=== PATIENT | female | born 1985 | race Caucasian/White ===

== ENCOUNTER → 2017-11-08 | Outpatient (CLI) | payer BC ==
[~2017-11-08] MED LIST: DOCU-416 PO; LACT1CAP6 PO; LEVO500T83 PO; MELA10TA7 PO; METR-160 PO; ONDA4TAB PO; ONDA4TAB97 PO; OXYC-854 PO; POTA20TA85 PO; PREN-127 PO; SUMA100T33 PO
== END ==
LOC: LAB 16:21
PROVIDERS: ATTEND Student in an Organized Health Care Education/Training Program
DX: Z34.91 Encounter for supervision of normal pregnancy, unspecified, first trimester (principal)
CPT/HCPCS: 87491; 87591

== ENCOUNTER → 2018-03-29 | Outpatient (CLI) | payer BC ==
[~2018-03-29] MED LIST changes: +AZIT-17 PO; +DIPH-911 PO; +FLU60VIA41 IM; -METR-160 PO; +METR500T15 PO; +NITR-105 PO; +PYRI25TA18 PO
== END ==
LOC: LAB 09:22
PROVIDERS: ATTEND Student in an Organized Health Care Education/Training Program
DX: M54.9 Dorsalgia, unspecified (principal); R82.79 Other abnormal findings on microbiological examination of urine
CPT/HCPCS: 87088

== ENCOUNTER → 2018-04-03 | Outpatient (CLI) | payer BC ==
[~2018-04-03] MED LIST changes: +DIPH0.5D12 IM
[2018-04-03 16:54] LABS: PLATELET COUNT, AUTOMATED 307 K/uL (150-450)
== END ==
LOC: LAB 08:16
PROVIDERS: ATTEND Advanced Practice Midwife
DX: Z34.92 Encounter for supervision of normal pregnancy, unspecified, second trimester (principal)
CPT/HCPCS: 82950; 85025

== ENCOUNTER → 2018-05-29 | Outpatient (CLI) | payer BC ==
[~2018-05-29] MED LIST changes: +BENZ100C4 PO; -DIPH0.5D12 IM; +DIPH0.5S2 IM; +POLY10DR22 OP
== END ==
LOC: LAB 15:41
PROVIDERS: ATTEND Advanced Practice Midwife
DX: Z36.85 Encounter for antenatal screening for Streptococcus B (principal)
CPT/HCPCS: 87081

== ENCOUNTER → 2018-06-02 | Outpatient (CLI) | payer BC ==
--- NOTE | 2018-06-02 17:15 | RADIOLOGY IMAGING REPORT ---
FACILITY: [facility] PATIENT NAME: Rubina Mason : 1985 MR: [id number] V: [id number] EXAM DATE: ORDERING PHYSICIAN: TREVA CHANCE TECHNOLOGIST: Location: [facility] - [place] Patient: Rubina Mason : 1985 Visit/Account:[id number] Date of Sevice: 06/02/2018 Limited OB ultrasound Indication: Size and dates Comparison: None available FINDINGS: Intrauterine gestations: one presentation: Vertex heart rate: 132 bpm Amniotic fluid index: 16.1 cm Largest amniotic fluid pocket 5.0 cm Placenta: Posterior without previa Uterus: gravid, otherwise normal Maternal adnexa: Unremarkable Cervix: long and closed Gestational Parameters: BPD: 8.7 cm 35 weeks 1 day, 13th percentile HC: 32.6 cm 37 weeks zero days, 22nd percentile AC: 32.6 cm 36 weeks 4 days, 46 percentile FL: 7.3 cm 37 weeks 1 day, 49th percentile Average ultrasound age (AUA): 36 weeks 4 days BRYN: 06/26/2018 Estimated weight (EFW): 2969 g EFW: 41st percentile IMPRESSION: 1. Single live intrauterine gestation with dates and measurements as above. Report Dictated By: Mario Streeter at 06/02/2018 5:08 PM Report E-Signed By: Mario Streeter at 06/02/2018 5:11 PM WSN:[id number]
== END ==
LOC: US 02:15
PROVIDERS: ATTEND Advanced Practice Midwife
DX: O26.843 Uterine size-date discrepancy, third trimester (principal)
CPT/HCPCS: 76815

== ENCOUNTER 2018-06-11 22:34 | Outpatient (CLI) | payer BC ==
[~2018-06-11] VITALS: Ht 165.1 cm; Wt 66.2 kg
[2018-06-11 23:00] VITALS: BP 114/73; BMI 24.3
[2018-06-11] MEDS ORDERED: LR(*) 1000 ML BAG 1,000 ML IV PRN (23:25)
[2018-06-12 07:00] VITALS: Ht 165.1 cm; Wt 66.2 kg
[2018-06-16] MEDS ORDERED: SUMA100T33 PO (15:30)
[2018-06-23] MEDS ORDERED: DESO15OI9 TP (12:46)
== END 2018-06-12 00:31 | disposition home or self-care (01) ==
LOC: L&D 22:34 → OB 22:34 → UNDOADMOB 22:34 → OB 22:34 → UNDODISOB 06-12 00:31 → L&D 06-12 00:31 → EDSTATUS 06-19 18:22
PROVIDERS: ATTEND Obstetrics & Gynecology
DX: O47.1 False labor at or after 37 completed weeks of gestation (principal); Z3A.38 38 weeks gestation of pregnancy
CPT/HCPCS: 59025; 99213; G0378; G0379

== ENCOUNTER 2018-06-12 05:00 | Inpatient (IN) | payer BC ==
[~2018-06-12] VITALS: Ht 162.6 cm; Wt 66.2 kg
[2018-06-12] MEDS ORDERED: LR(*) 1000 ML BAG 1,000 ML IV PRN (05:04)
[2018-06-12] MEDS ORDERED: OXYTOCIN 30 UNIT/D5LR 500 ML 500 ML ONE (05:45)
[2018-06-12 05:56] LABS: PLATELET COUNT, AUTOMATED 301 K/uL (150-450)
[2018-06-12] MEDS ORDERED: OXYTOCIN 30 UNIT/D5LR 500 ML 500 ML IV PRN (06:37)
[2018-06-12] MEDS ORDERED: FAMOTIDINE(*) 20MG/50ML PREMIX 50 ML IVPB PRN (06:37)
[2018-06-12] MEDS ORDERED: ceFAZolin(*) 2GM/D5W 50ML 50 ML IVPB PRN (06:37)
[2018-06-12] MEDS ORDERED: fentaNYL CITR 100 MCG/2 ML AMP IVP PRN (06:40)
[2018-06-12] MEDS ORDERED: METOCLOPRAMIDE 10 MG/2 ML SDV IVP PRN (06:40)
[2018-06-12 07:00] VITALS: BP 113/65; Ht 162.6 cm; Wt 66.2 kg
--- NOTE | 2018-06-12 07:31 | History & Physical ---
History of Present Illness : 1 Para or TPAL: 0 Chief Complaint IUP at term, contractions History of Present Illness 33 year old presents for ctx. She was here earlier in the evening and sent home after no cervical change in one hour. Ctx are stronger now. Shortly after arrival nurses reported SROM, clear fluid. PNC has been uncomplicated. GBS negative History Group B Strep Screen: Negative Obstetrical History: Past, Family & Social History Past Medical History Neurologic: Reports hx of: migraine Gastrointestinal: Reports hx of: irritable bowel syndrome 2 Genitourinary: Reports hx of: urinary tract infection Psychiatric: Reports hx of: anxiety (seeing counselor) depression eating disorder (Bulimia) Past Surgical History HEENT: Reports hx of: dental surgery (wisdom teeth) Gastrointestinal: Reports hx of: cholecystectomy (2017) other GI surgery (Partial Endoscopy) Past History History : 1 AB Spontaneous: Term: Mult Births: : Ectopic: AB Induced: Living Children: Gynecologic History Dysmenorrhea?: Yes Intermenstral Bleeding: No Last Pap Smear?: 2016 Last Pap Normal?: Yes Any Abnormal Paps? When?: No Any Procedures for Abnormal Pa: No Sexualy Active?: Yes Lifetime Partners: Men History of STI: No Contraception Method?: History of Abuse: No Infection/Genetics Infection history: H/O: chicken pox; No H/O: exposure to cats, rash/viral illness since Genetic screen and counseling: Baby's father: hemophilia/other blood di (iron build up in father), other chromosomal/inherit (Rhematoid arthritis); Negative: 35 years or older at due, patrice dx(Ashkenazi Taoist), congenital heart defect, cystic fibrosis, down syndrome, gladys chorea, maternal metabolic disord, mental retardation/autism, muscular dystrophy, neural tube defect, recurrent loss, sickle cell disease/trait, still , verenice-sachs (Ashkenazi Taoist), thalassemia/MCV < 80 Family History Patient History: FH: Parkinson's disease GRANDMOTHER FH: hyperlipidemia FATHER, Age:58 FH: hypertension PATERNAL GRANDMOTHER Tobacco Use Smoking Status: Never Smoker Smokeless Tobacco Used: Never Alcohol Use Alcohol Use: Occasional (3/week; before ) Substance Use Social Drug Use: Never Social History Social history: Marital Status: Living Situation: house Household Members: spouse / partner Education level: bachelor's degree Employment: employed real time trader Occupation: teacher at [employer] Sexual activity: monogomous Current contraception / STI pr: none Allergies: Coded Allergies: amoxicillin (Verified Allergy, Unknown, 05/17/16) clavulanic acid (Verified Allergy, Unknown, 05/17/16) Family History: FH: Parkinson's disease GRANDMOTHER FH: hyperlipidemia FATHER, Age:58 FH: hypertension PATERNAL GRANDMOTHER Med Rec Home Meds Reported Medications Vits W-Ca,Fe,Fa(<1MG) ( VITAMINS) 1 Each Tablet, 1 EACH PO DAILY, TAB 10/24/17 Discontinued Reported Medications Pyridoxine Hcl (VITAMIN B-6) Unknown Strength Tablet, PO 12/06/17 Diphenhydramine Hcl (UNISOM) Unknown Strength Capsule, PO, CAPSULE 12/06/17 Discontinued Scripts Polymyxin B Sulf/Trim 10,000 Unt-1 Mg/Ml Op (POLYMYXIN B-TMP EYE DROPS) 10 Ml Drops, 10 ML OP 5XD for pink eye for 7 Days, #1 BOT 0 Refills Right eye Prov:TREVA CHANCE [facility] 04/17/18 Benzonatate 100 Mg Cap (TESSALON PERLE 100 MG CAP) 100 Mg Capsule, 100 MG PO TID for cough, #15 CAP 0 Refills Prov:TREVA CHANCE [facility] 04/17/18 Nitrofurantoin Monohyd/M-Cryst (MACROBID 100 MG CAPSULE) 100 Mg Capsule, 100 MG PO BID for 7 Days, #14 CAPSULE 0 Refills Prov:NALDO TRAORE DO 03/29/18 Review of Systems Constitutional: No Fever Cardiovascular: No Chest Pain Respiratory: No Shortness of Breath Gastrointestinal: No Nausea, No Vomiting Psychiatric: No Depression, No Anxiety Exam General Exam Vital Signs Vital Signs Date Time Temp Pulse Resp B/P (MAP) Pulse Ox O2 Delivery O2 Flow Rate FiO2 06/12/18 07:00 98.1 88 22 113/65 (81) 98 Room Air General Apperance: Alert/Awake/No Acute Distress Respiratory: No Respiratory Distress Abdomen: Gravid - Non-Tender Extremities: No Cyanosis,Clubbing or Edema Integumentary: Skin Intact without Lesions or Rash Psychological: Alert & Oriented X3 Vaginal Discharge/Fluid?: Clear Fluid Cervical Dialation: 5 Cervical Effacement (%): 100 Cervical Consistency: Soft Cervical Position: Anterior Station: 0 Presentation: Vertex Uterine Contraction Strength: Strong UC Resting Tone: Soft Fetus Feeling Movement?: Yes Heart Tones: 120 Heart Tone Variabilty: Moderate FHT Accelerations: 15X15 FHT Decelerations: None FHT Category: I Medical Decision Making Data Points Result Diagram: 06/12/18 0542 Assessment and Plan REPAIR WELDER Assessment: Stable REPAIR WELDER Plan: Routine Labor Care Problems: (1) Active labor at term Assessment & Plan: Expectant management for , Kierra de la rosa CNSteven, per pt request. SANTHOSH LEE DO Jun 12, 2018 07:31
[2018-06-12] MEDS: IBUPROFEN 800 MG TAB PO SCH ×2 (11:12→19:17)
--- NOTE | 2018-06-12 11:29 | OB Delivery Note ---
Delivery Note Vaginal Delivery Type: Spont. Vaginal Delivery Delivery Date: Jun 12, 2018 Delivery Time: 09:50 Delivery Anesthesia: Other Sex: Male Infant Weight (gms): 3044 Apgars: 1 Minute, 5 Minute Repair Needed: Laceration, Vaginal, Perineal, 2nd Degree Delivery Complications: Laceration Notes: CP is a 33 year old @ 38 4/7 by LMP and first trimester US with an BRYN of 06/22/18 with OOC on 06/11/18 at 2100. She was triaged @ 2243 but was sent home as she was in early labor and 2/-2. Pt came back and was admitted to the family care unit at 0530 in active labor. Cervical exam on admission was 5/100/0. She had SROM on 06/12/18 at 0539 for clear moderate fluid. Pt was GBS neg. FHR was CAT I primarily throughout first stage. Pt utilized controlled breathing primarily for pain management. Pt was completely dilated on 06/12/18 at 0738 and pt began pushing spontaneously at that time.She pushed for a little over 2 hours with excellent maternal effort. At 0950 pt had a NSVB of live male infant APGARS 8/9, weighing 6bs 11oz, 3044g. The head delivered spontaneously in the OA position and restituted CARRIE with no nuchal cord. The anterior shoulder was delivered a traumatically and the posterior shoulder followed. Body delivered easily. Face was wiped and then placed on the maternal abdomen. The infant was dried and stimulated and noted to have a spontaneous cry and spontaneous movement of all 4 extremities. Cord was clamped X 2 by CNM after pulsations ceased and cut by patient's spouse. Mother was in SF position. At 0957 the placenta and membranes delivered spontaneous and intact with a 3 vessel cord after gentle downward traction. 30 units of Pitocin was placed in 500cc IV to firm the uterus and started immediately after placenta delivery. Upon inspection of the perineum a second degree perineal/vaginal laceration was noted and repaired using 3.0 Rapid Vicryl under 1% lidocaine with great approximation. Hemostasis observed. EBL 250 with fundus firm with minimal bleeding. Mom and baby were left in stable condition. imitated. "I personally examined the patient and there are no unintended foreign objects in the vagina, with sponge, lap, and needle counts correct." Sade Hendrix CNM was present throughout the entire delivery and Dr. Jake Bourgeois was my OB backup. Weatherization Administrator in Attendence: SADE Shepard CNM Jun 12, 2018 11:29
[2018-06-12] MEDS ORDERED: MAGNESIUM HYDROXIDE* 30ML UDCP PO PRN (11:30)
[2018-06-12] MEDS ORDERED: BENZOCAINE 20% 60 ML BTL TP PRN (11:30)
[2018-06-12] MEDS ORDERED: GLYCERIN/WITCH HAZEL LEAF 1 PK TOP PRN (11:30)
[2018-06-12] MEDS ORDERED: LANOLIN OINT 7 GM TUBE TP PRN (11:30)
[2018-06-12] MEDS ORDERED: APAP/HYDROCODONE 325/5 TAB PO PRN (11:30)
[2018-06-12] MEDS ORDERED: HYDROCORTISONE 2.5% CR 30GM TB PR PRN (11:30)
--- NOTE | 2018-06-12 11:45 | Labor Progress Note ---
Labor Subjective Progress Notes Subjective Pt complete and pushing. Labor Pain: Moderate Neurological: No Headache, No Other Eyes: No Visual Disturbances Labor Objective Vital Signs Vital Signs Date Time Temp Pulse Resp B/P (MAP) Pulse Ox O2 Delivery O2 Flow Rate FiO2 06/12/18 07:00 98.1 88 22 113/65 (81) 98 Room Air Cervical Dialation: 10 Cervical Effacement (%): 100 Cervical Consistency: Soft Cervical Position: Anterior Other Result Diagram: 06/12/18 0542 Assessment and Plan CONTRACTS ATTORNEY Assessment: Stable CONTRACTS ATTORNEY Plan: Routine Post- Care Problems: (1) Active labor at term Assessment & Plan: I was present for delivery and repair of second-degree midline laceration by Kierra Hendrix CNM. Patient to remain in hospital for her immediate stay. NALDO TRAORE DO Jun 12, 2018 11:45
[2018-06-12 12:20] VITALS: BP 102/68
[2018-06-12] MEDS ORDERED: LIDOCAINE 1% LOCAL 300 MG/30ML 30 ML ONE (13:56)
[2018-06-12 14:15] VITALS: BP 101/57
[2018-06-12 19:00] VITALS: BP 117/73
[2018-06-12] MEDS: DOCUSATE CALCIUM 240 MG CAP PO SCH (19:17)
[2018-06-13 02:00] VITALS: BP 102/65
[2018-06-13] MEDS: IBUPROFEN 800 MG TAB PO SCH ×3 (02:50→20:05)
[2018-06-13 07:16] VITALS: BP 114/62
[2018-06-13] MEDS: DOCUSATE CALCIUM 240 MG CAP PO SCH ×2 (10:27→20:06)
--- NOTE | 2018-06-13 11:46 | OB/GYN Progress Note ---
OB Subjective Progress Notes Subjective Pt is PP day # 1 s/p uncomplicated of a male . She reports feeling well today, just tired. She is tolerating pain with ibuprofen. She is working on breast-feeding today and has had a couple of good feeds. Right now she is trying to take a nap. GI: POS Flatus; NEG Nausea, NEG Vomiting, NEG Bowel Movement : Voiding Well, Vaginal Bleeding, Scant Pain: Mild Neurological: No Headache Eyes: No Visual Disturbances OB Objective Physical Exam Vital Signs Date Time Temp Pulse Resp B/P (MAP) Pulse Ox O2 Delivery O2 Flow Rate FiO2 06/13/18 07:16 98.5 60 18 114/62 (79) Room Air 06/13/18 02:00 94 Intake and Output 06/13/18 07:00 Intake Total 2130 ml Balance 2130 ml Intake Oral 600 ml IV Total 1530 ml # Voids 2 General Appearance: Alert/Awake/No Acute Distress Neurological: No Gross deficits Eyes: Normal Extraocular Movement & Vison ENT: Normal Neck: No Masses Respiratory: No Respiratory Distress Abdomen: Soft, Non-Tender, Non-Distended, Bowel Sounds Present, Fundus Firm Incision: Other (incision healing well with good approximation) : Normal Musculoskeletal: No Weakness/Pain Extremities: No Cyanosis,Clubbing or Edema Integumentary: Skin Intact without Lesions or Rash Psychological: Alert & Oriented X3 Result Diagram: 06/12/18 0542 Assessment and Plan Hospital Day: 1 SINGER BACK TENDER Assessment: Stable SINGER BACK TENDER Plan: Routine Post- Care, Advance Diet, Advance Activity, Discharge Home Tomorrow Problems: (1) Active labor at term Status: Resolved (2) (normal spontaneous vaginal delivery) Status: Resolved (3) Second degree laceration of perineum, delivered, current hospitalization Onset Date: ~ 06/12/2018 Status: Acute Assessment & Plan: Second-degree perineal laceration is healing well with good approximation. Encouraged patient to continue use of peribottle, tucks pads and dermoplast spray with only dabbing dry after urinating. She is tolerating pain well with ibuprofen and has no complaints. (4) care and examination Onset Date: ~ 06/12/2018 Status: Acute Assessment & Plan: Patient is day 2 status post an uncomplicated of a male infant on 06/12/2018. She is doing well today without concerns. She is voiding well and has minimal bleeding. She is tolerating her perineal pain well with ibuprofen. She continues to work on breast-feeding as this has been a little bit of a struggle for her. I encouraged her to try to breast-feed every 2 hours with the nurse's help. She is trying to get some rest as she is still very exhausted from the long labor. The plan is for patient to be discha rged tomorrow with baby as long as baby and mom are feeling well. We reviewed the importance of increasing hydration, trying to rest when she can and breast- feeding as much as possible. TREVA CHANCE CNM Jun 13, 2018 11:46
[2018-06-13 19:45] VITALS: BP 105/68
[2018-06-13 21:45] VITALS: BP 93/49
[2018-06-14] MEDS: IBUPROFEN 800 MG TAB PO SCH (04:17)
[2018-06-14 08:35] VITALS: BP 113/68
[2018-06-14] MEDS ORDERED: IBUP800T37 PO (10:52)
--- NOTE | 2018-06-14 11:07 | OB/GYN Discharge Summary ---
Discharge Summary Reason for Hosp/Final Diag: (1) Active labor at term Status: Resolved (2) (normal spontaneous vaginal delivery) Status: Resolved (3) Second degree laceration of perineum, delivered, current hospitalization Onset Date: ~ 06/12/2018 Status: Acute Hospital Course & Plan: Second-degree perineal laceration is healing well with good approximation. Encouraged patient to continue use of peribottle, tucks pads and dermoplast spray with only dabbing dry after urinating. She is tolerating pain well with ibuprofen and has no complaints. (4) care and examination Onset Date: ~ 06/12/2018 Status: Acute Hospital Course & Plan: Admission Diagnoses: Active labor at Term Reason for Hospitalization: labor, and care Procedures Performed: Laceration repair Delivery Type: Hospital Course:CP is a 33 year old G1 now P1 @ 38 05/21 by LMP and first trimester US with an BRYN of 06/22/18 with OOC on 06/11/18 at 2100. She was triaged @ 2243 but was sent home as she was in early labor and 2/-2. Pt came back and was admitted to the family care unit at 0530 in active labor. Cervical exam on admission was 5/100/0. She had SROM on 06/12/18 at 0539 for clear moderate fluid. Pt was GBS neg. FHR was CAT I primarily throughout first stage. Pt utilized controlled breathing and continuous labor support primarily for pain management. Delivery Information: See delivery note Estimated blood loss: 250 Episiotomy: none Laceration: 2nd degree perineal Pain Management: Continuous labor support Subjective: Pt is feeling very well today and ready to go home. Abdominal pain: Very minimal cramping and using ibuprofen with good effect Perineal pain: Some mild pain, but using kimberly bottle, dermaplast, and tucks pads. Vaginal bleeding: scant red, no clots Flatus: positive UTI symptoms: none Feeding modality: Problems with breast feeding: baby has been very sleepy and difficult to wake for every 3 hour feedings. She does report a good latch without pain Bowel movement: not yet Ambulating: yes Preeclampsia symptoms: Denies BURT, vision changes and RUQ pain Nausea/vomiting: None experience: She and her are very pleased with their experience and happy she was able to have it unmedicated control: not sure yet, but will discuss at her 2 week visit Objective Exam: Vitals: Normotensive and afebrile Breasts: Soft, nontender, nipples everted with no cracking or bleeding. Colostrum +, encouraged to wake baby and BF every 3 hours per peds as baby's bilirubin is elevated.Pt will see Peds tomorrow Abdomen: FF 1<U, non tender Perineum: Healing well with good approximation, no significant swelling Lochia: red, minimal, no clots Extremities: BLE without calf pain or redness, - homans sign Disposition: Patient discharged to home in medically stable condition. No Known Allergies Medication Instructions Given to the Patient at Discharge: Ibuprofen Script sent to [facility] Take Ibuprofen 800mg PO TID for 5-7 days as needed Follow-up Appointment: 2&6 weeks with Sade Hendrix CNM Activity/Restrictions: Pelvic rest; nothing in vagina for six weeks. Return Precautions: Patient instructed to call the clinic or return to hospital for fever > 101 degree F; chills; severe nausea or vomiting; inability to tolerate anything by mouth for > 24 hours; increasingly severe abdominal/pelvic pain; foul smelling vaginal discharge; vaginal bleeding > 1 pad per hour for > 2 hours; separation, drainage, or redness of incision or laceration site. Reviewed depression and pre-eclampsia s/s and when to seek care. Lates Vital Signs Vital Signs Date Time Temp Pulse Resp B/P (MAP) Pulse Ox O2 Delivery O2 Flow Rate FiO2 06/14/18 08:35 98.0 53 18 113/68 (83) 06/14/18 04:00 Room Air 06/13/18 02:00 94 Weight (Pounds): 146 Result Diagram: 06/12/18 0542 Condition: Improved Discharge: Home Home Meds Reported Medications Vits W-Ca,Fe,Fa(<1MG) ( VITAMINS) 1 Each Tablet, 1 EACH PO DAILY, TAB 10/24/17 Discontinued Reported Medications Pyridoxine Hcl (VITAMIN B-6) Unknown Strength Tablet, PO 12/06/17 Diphenhydramine Hcl (UNISOM) Unknown Strength Capsule, PO, CAPSULE 12/06/17 Discontinued Scripts Polymyxin B Sulf/Trim 10,000 Unt-1 Mg/Ml Op (POLYMYXIN B-TMP EYE DROPS) 10 Ml Drops, 10 ML OP 5XD for pink eye for 7 Days, #1 BOT 0 Refills Right eye Prov:SADE HENDRIX CNM 04/17/18 Benzonatate 100 Mg Cap (TESSALON PERLE 100 MG CAP) 100 Mg Capsule, 100 MG PO TID for cough, #15 CAP 0 Refills Prov:SADE HENDRIX CNM 04/17/18 Nitrofurantoin Monohyd/M-Cryst (MACROBID 100 MG CAPSULE) 100 Mg Capsule, 100 MG PO BID for 7 Days, #14 CAPSULE 0 Refills Prov:NALDO TRAORE 03/29/18 Follow up Referrals: [facility] DEAL[facility] @ [facility] with SADE HENDRIX CNM Follow up in: 6 wks PP or PO, 2 wks PO Discharge Diet: As Tolerates, Resume Prior Admit Diet, Increase Fluid Intake Discharge Activity: As Tolerates, Pelvic Rest SADE HENDRIX CNM June 14, 2018 11:03
[2018-06-16] MEDS ORDERED: SUMA100T33 PO (15:30)
== END 2018-06-14 14:20 | disposition home or self-care (01) | DRG 807 ==
LOC: OB 05:00 → OBSVTOIN 05:00
PROVIDERS: ADMIT Obstetrics & Gynecology; ATTEND Obstetrics & Gynecology
PROC: 10E0XZZ Delivery of Products of Conception, External Approach (ICD-10-PCS; principal; 2018-06-12)
PROC: 0KQM0ZZ Repair Perineum Muscle, Open Approach (ICD-10-PCS; 2018-06-12)
DX: O99.344 Other mental disorders complicating childbirth (principal); Z37.0 Single live birth; F41.8 Other specified anxiety disorders; Z3A.38 38 weeks gestation of pregnancy; O70.1 Second degree perineal laceration during delivery; Z88.0 Allergy status to penicillin; Z88.8 Allergy status to other drugs, medicaments and biological substances
CPT/HCPCS: 85025; 86703; 86850; 86900; 86901; J2001; J2590; J7120

== ENCOUNTER → 2018-08-24 | Outpatient (CLI) | payer BC ==
[2018-06-12 07:00] VITALS: BMI 25.1
[~2018-08-24] MED LIST changes: +DESO15OI9 TP; +IBUP800T37 PO
--- NOTE | 2018-08-24 10:46 | RADIOLOGY IMAGING REPORT ---
[place] [facility] [place] Rubina Mason : 1985 MR: [id number] V: [id number] EXAM DATE: ORDERING PHYSICIAN: SHINE GALAN TECHNOLOGIST: Location: [facility] - [place] Patient: Rubina Mason : 1985 Visit/Account:[id number] Date of Sevice: 08/24/2018 EXAMINATION: MRI brain without IV contrast HISTORY: COMPARISON: None. TECHNIQUE: Multi-planar, multi-sequence brain MRI was performed without IV contrast. FINDINGS: Brain volume: Normal. Sagittal midline structures: Normal. Ventricles: Normal. Acute ischemic changes: None. Hemorrhage: None. Masses/edema: None. Townsend-white: Negative. White matter: Normal. Vessels: Normal. Extra-axial: None. Calvarium/scalp: Negative. Skull base: Negative. Visualized sinuses/orbits: Minimal mucosal thickening in the left sphenoid sinus. Visualized upper neck: Negative. IMPRESSION: Unremarkable MRI of the brain. Report Dictated By: LUCIO DEL ROSARIO at 08/24/2018 10:36 AM Report E-Signed By: LUCIO DEL ROSARIO at 08/24/2018 10:39 AM WSN:[id number]
== END ==
LOC: MRI 00:37
PROVIDERS: ATTEND Psychiatry & Neurology Neurology
DX: G43.109 Migraine with aura, not intractable, without status migrainosus (principal); H53.149 Visual discomfort, unspecified; G43.001 Migraine without aura, not intractable, with status migrainosus
CPT/HCPCS: 70551